=== PATIENT | female | born 1965 | race Caucasian/White ===

== ENCOUNTER 2019-02-12 21:22 | Inpatient (IN) | payer MEDICARE, MEDICAID ==
[~2019-02-12] VITALS: Ht 167.6 cm; Wt 59.0 kg
[2019-02-12 21:40] VITALS: BP 113/62
--- NOTE | 2019-02-12 21:40 | NUR ---
GPS Admission notes: Received patient from [facility]. Patient arrived on this unit at 2140 via stretcher with 2 emt escort. Patient on a 5150 HOLD FOR DTS. Per HOLD, patient was making suicidal statements without specific plan. Client states "I will kill myself the second I leave here". Client unable to be redirected and remains high risk to self harm. The 5150 was reviewed and the documentation in the 5150 HOLD appears to reflect the presentation of the patient. Upon face to face assessment, patient is noted to be calm, however get pissed off right away when asked about the reason she was brought to the hospital. First, she stated, the man who wrote the hold order, was very happy to put her on hold. She claimed that the only thing she mentioned was "If you send me back home, I am going to of neglect and isolation". During the conversation, she said " I am unable to function at all, I am eating like an animal, eating whatever trash I have, last meal I ate was a canned good from 2006". She added "I don't know how to survive as this world is brutal". Patient claimed, " The isolation is killing me, I am going to of neglect and isolation". When patient was asked to elaborate about her statement, patient stated "my mother is living in [place], never bother to see me nor call me, and my brother already have family, and they don't care at all". Patient expressed her resentment toward her mother, stated " I really hate her so much for bringing me into this world" as pt verbalized. As patient was saying that, frustration and anger was observed. During the interview, patient was noted to be cooperative, needs redirection. Emotional support provided. Patient is currently lying in bed, awake, denies any c/o pain, no apparent distress noted. Patient's breathing is unlabored, with equal rise and fall of the chest. Patient is a/o x3, on ra, able to turn and reposition on her own, ambulatory, and continent. Patient only wants her ativan and restoril. Patient denies any suicide ideation and homicidal ideation, she also claimed she doesn't have any plans of hurting herself, and stated that in case of emergency, she would like full resuscitation measures (full code). Patient stated she doesn't want any family member to be called/notify of this hospitalization. Patient refused to sign any paperwork. Patient advised of her hold and patient rights booklet provided/given. Patient is under Psychiatric care of Dr. Shea and medical care of [facility]. Patient's belongings were inventoried and checked for contraband. All contraband removed and stored in patient room locker. Patient advance directive preference, immunization questionnaires, necessary paper works completed. Patient's skin assessment performed/completed, patient refused taking photo of her face, refused any photo documentation for skin issue. Only skin issue noted is the rashes on nose and mouth area. Pt oriented to the room, floor, and staff, with all questions answered. Patient was educated on the use of call davies. Pt's bed side rails are up x2 for safety. Bed is locked, in lowest position, and I will continue to monitor this patient [id number] for safety and any changes in behavior. Will maintain safety with the help of staff. charge attendant communicated with cushion filler Psych MD regarding all patient's home medications, current status/behavior/condition.
--- NOTE | 2019-02-12 22:00 | NUR ---
RN NOTES: PT REQUESTED NON DISCLOSURE. DOES NOT WANT TO GIVE ANY INFORMATION ABOUT HER CASE TO THE MOTHER AND BROTHER, BEATER ENGINEER HELPER MADE AWARE.
[2019-02-12] MEDS ORDERED: LORA-259 PO (22:14)
[2019-02-12] MEDS ORDERED: QUET25TA PO (22:15)
[2019-02-12] MEDS ORDERED: QUET50TA PO (22:15)
[2019-02-12] MEDS ORDERED: TEMA15CA5 PO (22:16)
[2019-02-12] MEDS ORDERED: MAGNESIUM HYDROXIDE 30 ML UDC PO PRN (22:30)
[2019-02-12] MEDS ORDERED: MAG HYDROX/AL HYDROX/SIMETH 30 ML UDC PO PRN (22:30)
[2019-02-12] MEDS: TEMAZEPAM 15 MG CAPSULE PO PRN (22:37)
--- NOTE | 2019-02-12 22:37 | NUR ---
prn restoril: pt requested for sleeping pill, prn restoril administered at this time.
--- NOTE | 2019-02-13 03:00 | NUR ---
RN NOTES: SEEN PT SLEEPING AT THIS TIME, APPEARS CALM AND COMFORTABLE.
[2019-02-13] MEDS: LORAZEPAM 1 MG TABLET PO PRN ×3 (06:36→18:53)
--- NOTE | 2019-02-13 06:36 | NUR ---
PRN ATIVAN: PT REQUESTED FOR ANXIETY PILL, PRN ATIVAN 1 MG ADMINISTERED AT THIS TIME. PT REQUESTED IF SHE COULD GET 2MG, INFORMED PT THE ORDER FROM PSYCH MD IS ONLY 1MG. THEN THE PT STATED IF SHE COULD GET SEROQUEL WITH IT, INFORMED PT THAT MD HAS NO ORDER FOR THIS PARTICULAR MEDICATION TO BE GIVEN AT THIS TIME, EDUCATION PROVIDED TO THE PT. PT EXPRESSES HER FRUSTRATION TOWARDS THE MEDICATION. NOTIFIED MARLYS PERALTA.
[2019-02-13 07:04] LABS: BASOPHILS # (AUTO) 0.1 /CMM (0.0-0.2); BASOPHILS % (AUTO) 1.3 % (0.0-2.0); EOSINOPHILS % (AUTO) 2.6 % (0.0-6.0); HEMATOCRIT 38 % (33-45); HEMOGLOBIN 12.6 g/dL (11.5-14.8); LYMPHOCYTES # (AUTO) 1.6 /CMM (0.8-4.8); LYMPHOCYTES % (AUTO) 31.6 % (20.0-44.0); MEAN CORPUSCULAR HGB CONC 33 g/dl (31.0-36.0); MEAN CORPUSCULAR VOLUME 92 fL (82-100); MONOCYTES # (AUTO) 0.6 /CMM (0.1-1.30); MONOCYTES % (AUTO) 11.3 % (2.0-12.0); NEUTROPHILS # (AUTO) 2.6 /CMM (1.8-8.9); NEUTROPHILS % (AUTO) 53.2 % (43.0-81.0); PLATELET COUNT (AUTO) 314 /CMM (150-450); RED BLOOD CELL COUNT(AUTO) 4.11 MIL/uL (4.0-5.2); WHITE BLOOD COUNT (AUTO) 4.9 K/uL (4.3-11.0)
[2019-02-13 07:14] LABS: CALCIUM, SERUM 8.4 mg/dL (8.5-10.1); CREATININE 0.7 mg/dL (0.6-1.3); POTASSIUM 3.9 mmol/L (3.5-5.1)
[2019-02-13 08:00] VITALS: BP 100/60
--- NOTE | 2019-02-13 09:54 | NUR ---
GPS/RN-NOTES NOTED PATIENT SCREAMING AND YELLING IN THE UNIT,INTRUSIVE ANGRY WITH THE STAFF. STATED " I NEED MEDICATIONS TO CALM ME DOWN",REDIRECTED PATIENT AND AGREED FOR IM MEDS. CHARGE NURSE MADE DR. WADSWORTH AWARE OF PATIENT BEHAVIOR WITH T.O ORDER OF ZYPREXA 5MG IM.CHARGE NURSE MADE PATIENT AWARE OF THE ORDER BUT SHE REFUSED ZYPREXA IM. PATIENT FINALLY CALM DOWN AND LAYING IN BED AT THIS TIME.
--- NOTE | 2019-02-13 11:44 | NUR ---
INITIAL DISCHARGE NOTE: Per pt she will be discharged to her mother house [address] [facility] [address] before returning [place] [address] [facility] [address]. SW will help form a safe and proper discharge on collaboration with .
[2019-02-13] MEDS: QUETIAPINE FUMARATE 25 MG TABLET PO SCH ×3 (11:46→21:08)
--- NOTE | 2019-02-13 12:36 | NUR ---
GPS/RN-NOTES PATIENT REQUESTING ATIVAN FOR ANXIETY. ATIVAN 1MG P.O GIVEN PRN ORDER. WILL CONT. MONITORING FOR SAFETY AND BEHAVIOR.
--- NOTE | 2019-02-13 13:35 | NUR ---
GPS/RN-NOTES PATIENT LAYING IN BED AWAKE,ALERT CALM,NO ACUTE DISTRESS NOTED.
[2019-02-13 16:00] VITALS: BP 112/74
[2019-02-13] MEDS: ACETAMINOPHEN 325 MG TABLET PO PRN (16:19)
--- NOTE | 2019-02-13 16:20 | NUR ---
GPS /RN-NOTES PATIENT REQUESTING TYLENOL STATED" I NEED TYLENOL I'M HAVING HEADACHE". TYLENOL 650MG P.O GIVEN PRN ORDER. WILL CONT. MONITORING.
--- NOTE | 2019-02-13 17:20 | NUR ---
GPS/RN-NOTES PATIENT SLEEPING IN BED,EASILY AROUSE,NO ACUTE DISTRESS NOTED.
--- NOTE | 2019-02-13 18:56 | NUR ---
GPS/RN-NOTES PATIENT CRYING AND REQUESTING ATIVAN . ATIVAN 1MG P.O GIVEN PRN ORDER. WILL CONT. MONITORING FOR SAFETY AND BEHAVIOR. ENDORSE TO INCOMING NURSE FOR MONITORING AND CONTINUITY OF CARE.
[2019-02-13 21:04] VITALS: BP 103/70
[2019-02-13] MEDS: NICOTINE PATCH (21MG) 21 MG PATCH.TD24 TD SCH (22:17)
[2019-02-13] MEDS: TEMAZEPAM 15 MG CAPSULE PO PRN (23:05)
[2019-02-14] MEDS: ACETAMINOPHEN 325 MG TABLET PO PRN (03:41)
[2019-02-14] MEDS: LORAZEPAM 1 MG TABLET PO PRN ×3 (06:20→23:56)
--- NOTE | 2019-02-14 06:20 | NUR ---
GPS RN NOTE, PATIENT HAS A COMPLAINT OF FEELING OF ANXIOUS AND IS REQUESTING ATIVAN AT THIS TIME. PATIENT VITAL SIGNS ARE STABLE. GAVE ATIVAN 1 MG PO Q6 HR PRN ORDERED. WILL REASSESS FOR ANXIETY AND I WILL CONTINUE TO MONITOR THIS PATENT.
[2019-02-14 08:00] VITALS: BP 92/59
--- NOTE | 2019-02-14 09:00 | NUR ---
RN NOTE: INFORMED DR BUENO OF PATIENT'S BP 92/59; PATIENT IS NON-SYMPTOMATIC. PATIENT ALSO STATES THAT HER BASELINE BP IS TYPICALLY LOW.
[2019-02-14] MEDS: QUETIAPINE FUMARATE 25 MG TABLET PO SCH ×3 (09:43→21:39)
[2019-02-14] MEDS: NICOTINE PATCH (21MG) 21 MG PATCH.TD24 TD SCH (09:44)
--- NOTE | 2019-02-14 12:58 | NUR ---
rn note: patient complaining of anxiety, prn Ativan given.
[2019-02-14] MEDS ORDERED: LORAZEPAM INJ 2 MG/ML VIAL IM ONE (16:00)
[2019-02-14] MEDS ORDERED: OLANZAPINE 10 MG VIAL IM ONE (16:00)
--- NOTE | 2019-02-14 16:11 | NUR ---
PT. WAS CALLING POLICE WITH OTHER PT. DR. HERNANDEZ MADE AWARE AND ORDERED PT. MAY USE PHONE PT. WITH STAFF SUPERVISION.
--- NOTE | 2019-02-14 16:39 | NUR ---
RN NOTE: PATIENT REFUSED 1700 MEDS
--- NOTE | 2019-02-14 18:15 | NUR ---
RN CHEMICAL RESTRAINT NOTE: TODAY, AROUND 1530 PATIENT CAME TO THE NURSING STATION FURIOUS ABOUT THE 14 DAY HOLD THAT WAS WRITTEN TO HER. SHE WAS YELLING CONSTANTLY AND GETTING AGGRESSIVE AND HOSTILE TOWARDS STAFF MEMBERS. OTHER STAFF MEMBERS AND MYSELF MADE MULTIPLE ATTEMPTS ON RE-DIRECTING PATIENT AND CALMING HER DOWN. PATIENT'S BEHAVIOR WAS ONLY ESCALATING AND POSING A THREAT TO OTHERS ON THE UNIT. ATIVAN PO PRN WAS OFFERED MULTIPLE TIMES BUT PATIENT DECLINED AND HER BEHAVIOR KEPT ESCALATING. CONTACTED DR HERNANDEZ AT 1600 AND REPORTED PATIENT'S BEHAVIOR WITH A ONE TIME ORDER FOR ZYPREXA 5 MG IM AND ATIVAN 2 MG IM NOW. RBO. PHARMACY WAS CONTACTED FOR VERIFICATION. CONTACTED SECURITY. PULLED MED FROM [employer] AND PREPARED THE INJECTION. OFFERED HER ATIVAN PO PRN ONE MORE TIME BUT PATIENT REFUSED. WITH THE HELP OF SECURITY AND STAFF MEMBERS, PATIENT WAS ESCORTED TO HER ROOM WHERE I INJECTED THE ATIVAN/ZYPREXA AT 1605 ON HER RIGHT GLUTEUS BENIGNO. VITAL SIGNS WERE TAKEN AND PATIENT WAS CLOSELY MONITORED. PATIENT STARTED TO CALM DOWN AROUND 1630. WILL CONTINUE MONITORING PATIENT FOR BEHAVIOR AND SAFETY PER GPS PROTOCOL.
[2019-02-14 20:11] VITALS: BP 114/72
[2019-02-14 23:00] VITALS: BP 116/66
--- NOTE | 2019-02-15 07:11 | NUR ---
RN NOTES : DURING SHIFT PT. BEHAVIOR VERY UNCOOPERATIVE , PARANOID ,DISHELVED, NEEDY, INTRUSIVE WITH STAFF , ENDORSE TO DAY SHIFT FOR CONITUITY OF CARE .
[2019-02-15] MEDS: LORAZEPAM 1 MG TABLET PO PRN ×3 (07:55→18:53)
--- NOTE | 2019-02-15 07:56 | NUR ---
RN NOTE- PT WITH ANXIETY. ATIVAN PRN GIVEN
[2019-02-15 08:00] VITALS: BP 94/62
[2019-02-15] MEDS: NICOTINE PATCH (21MG) 21 MG PATCH.TD24 TD SCH (08:25)
[2019-02-15] MEDS: QUETIAPINE FUMARATE 25 MG TABLET PO SCH ×3 (08:25→21:31)
--- NOTE | 2019-02-15 12:06 | NUR ---
RN NOTE- PT INCREASED AGITATION. EXTENDED DAY TEACHER CALLED MD AND RECEIVED INCREASED DOSE ATIVAN. PRN GIVEN AT THIS TIME
[2019-02-15 16:00] VITALS: BP 135/90
--- NOTE | 2019-02-15 18:54 | NUR ---
RN NOTE- ATIVAN 1MG PRN GIVEN FOR ANXIETY
[2019-02-15 19:57] VITALS: BP 117/65
[2019-02-15] MEDS: TEMAZEPAM 15 MG CAPSULE PO PRN (21:56)
[2019-02-16 08:00] VITALS: BP 100/52
[2019-02-16] MEDS: QUETIAPINE FUMARATE 25 MG TABLET PO SCH (08:40)
[2019-02-16] MEDS: LORAZEPAM 1 MG TABLET PO PRN ×2 (09:07→13:25)
[2019-02-16] MEDS: NICOTINE PATCH (21MG) 21 MG PATCH.TD24 TD SCH (09:07)
--- NOTE | 2019-02-16 09:26 | NUR ---
GIVEN ATIVAN FOR AGITATION.
--- NOTE | 2019-02-16 09:40 | NUR ---
PETRONA received a call from pts mother Klaudia [phone] stating that she was coming on this present day to pickle processor pt. PETRONA explained that pt is on a 14 day hold and that there was not discharge order and educated pts mother on [facility] law. PETRONA explained that pt needs to be evaluated by psychiatrist on this day before psychiatrist can place a discharge order. Pts mother was upset and said that pt was being held against her will and wants to get her an attorney lawyer. PETRONA explained that pt will be scheduled for a Probable Cause Hearing within the next 3 days if psychiatrist believes pt continues to meet criteria for a 14 day hold. Mother stated that she wants SW to call her after she has net with psychiatrist.
--- NOTE | 2019-02-16 11:57 | NUR ---
PETRONA contacted pts mother Klaudia [phone] to inform her pt will be discharged on this present day. Mother stated that she would be coming at 3:00pm to pick pt up and transport home.
--- NOTE | 2019-02-16 13:18 | NUR ---
DISCHARGE NOTE: Pt will be discharged at 3:00pm via private vehicle to her Mothers home [address] [facility] [address]. Pts Mother Klaudia [phone] will be picking pt up and transporting home to [address]. Pts mood is irritable with congruent affect. Pt denied visual/auditory hallucinations and denied suicidal/homicidal ideation. Pt will address her substance use with [address] [address] P:[phone] F: [phone]. Pt was also given a referral to [facility]: Outpatient Rehab Address: [address] [place] [address] and encouraged her to present on Saturday02/17/19 at 10:00am for an intake. Pt will follow up with [address], [place] [address] P:[phone] for mental health services SW faxed clinicals to F: [phone]. For smoking cessation, patient was referred to the [employer] and [employer] [id number]. Pt will also follow up with Waste Machine Operator: Dr. Bayron Friend Address: [address] [place] [address] . The multidisciplinary exitcare form was done, printed, signed, and given to the patient.
--- NOTE | 2019-02-16 13:37 | NUR ---
EXTREMELY AGITATED GIVEN ATIVAN 1 MG. PO. Addendum: 02/16/19 at 1518 by TIO COLLINS RN PER DOCTOR WILMAR RADFORD.
[2019-02-16] MEDS: ACETAMINOPHEN 325 MG TABLET PO PRN (14:17)
--- NOTE | 2019-02-16 14:21 | NUR ---
MEDICATED FOR CRAMPS WITH TYLENOL 650 MG PO.
--- NOTE | 2019-02-16 15:00 | NUR ---
REFUSED DISCHARGE PHOTOS
--- NOTE | 2019-02-16 15:20 | NUR ---
PT'S MOTHER HERE AND GIVEN DC INSTRUCTIONS,ALL PAPERS SIGNED INCLUDING BELONGING SHEET.GIVEN RXS WELL.AMBULATED TO LOBBY BY CIGARETTE MAKER AND ACCOMPANIED BY MOTHER. PT. DENIES SUICIDAL OR HOMICIDAL IDEATION INCLUDING COMMAND HALLUCINATIONS.
--- NOTE | 2019-03-03 11:57 | NUR ---
15 DAY SUBSTANCE ABUSE FOLLOW UP: unable to follow up due to contact number no longer valid.
== END 2019-02-16 15:20 | disposition home or self-care (01) | DRG 883 ==
LOC: GPS 21:22
PROVIDERS: ADMIT Psychiatry & Neurology Psychosomatic Medicine; ATTEND Student in an Organized Health Care Education/Training Program
DX: F60.3 Borderline personality disorder (principal); R45.851 Suicidal ideations; F39 Unspecified mood [affective] disorder; F41.9 Anxiety disorder, unspecified; E78.5 Hyperlipidemia, unspecified; E78.1 Pure hyperglyceridemia; F31.9 Bipolar disorder, unspecified; F19.10 Other psychoactive substance abuse, uncomplicated
CPT/HCPCS: 36415; 80048-TC; 80061-TC; 84443-TC; 85025-TC; 87081-TC; J2060; J3490